=== PATIENT | female | born 1980 | race Asian ===

== ENCOUNTER 2016-11-05 18:08 | Emergency (ER) | payer BC ==
[2016-11-05 18:24] VITALS: BP 118/69
--- NOTE | 2016-11-05 18:39 | UC ---
Throat Pain/Nasal Woo HPI - HPI Summary HPI Summary: day 2 of fever and sore throat - History of Current Complaint Chief Complaint: UCRespiratory Stated Complaint: SORE THROAT Time Seen by Provider: 11/05/16 18:36 Hx Obtained From: Patient Hx Last Menstrual Period: pt on B/C that does not give her a menses ?: No Onset/Duration: Sudden Onset, Lasting Days - 2, Still Present Severity: Moderate Pain Intensity: 5 Pain Scale Used: 0-10 Numeric Cough: None Associated Signs & Symptoms: Positive: Fever. Negative: Hoarseness, Sinus Discomfort, Nasal Discharge - Allergies/Home Medications Allergies/Adverse Reactions: Allergies Allergy/AdvReac Type Severity Reaction Status Date / Time No Known Allergies Allergy Verified 11/05/16 18:24 Home Medications: Home Medications Ibuprofen [Ibuprofen 200 MG] 400 mg PO PRN 11/05/16 [History] PMH/Surg Hx/FS Hx/Imm Hx Previously Healthy: Yes Endocrine History Of: Denies: Diabetes, Thyroid Disease Cardiovascular History Of: Denies: Cardiac Disorders, Hypertension Respiratory History Of: Denies: COPD, Asthma GI/ History Of: Denies: Ulcer - Surgical History Surgical History: Yes Surgery Procedure, Year, and Place: . Oral Surgery - Family History Known Family History: Positive: None Family History: no cardiovascular issues in family lineage - Social History Occupation: Unemployed Lives: With Family Alcohol Use: None Substance Use Type: None Smoking Status (MU): Never Smoked Tobacco - Immunization History Most Recent Influenza Vaccination: 01/2015 Most Recent Tetanus Shot: had this Most Recent Pneumonia Vaccination: none Review of Systems Constitutional: Fever, Chills Skin: Negative Eyes: Negative ENT: Sore Throat Respiratory: Negative Cardiovascular: Negative Gastrointestinal: Negative Genitourinary: Negative Motor: Negative Neurovascular: Negative Musculoskeletal: Negative Neurological: Negative Psychological: Negative All Other Systems Reviewed And Are Negative: Yes Physical Exam Triage Information Reviewed: Yes Appearance: Well-Appearing, No Pain Distress, Well-Nourished Vital Signs: Initial Vital Signs Temp 101.9 F 11/05/16 18:18 Pulse 117 11/05/16 18:18 Resp 16 11/05/16 18:18 BP 118/69 11/05/16 18:18 Pulse Ox 96 11/05/16 18:18 Vital Signs Reviewed: Yes Eye Exam: Normal Eyes: Positive: Conjunctiva Clear ENT Exam: Normal ENT: Positive: Normal ENT inspection, Hearing grossly normal, Pharyngeal erythema, TMs normal. Negative: Nasal congestion, Nasal drainage, Tonsillar swelling, Tonsillar exudate, Trismus, Muffled/hoarse voice Dental Exam: Normal Neck exam: Normal Neck: Positive: Supple, Nontender, Enlarged Nodes @ - anterior cervical bilaterally Respiratory Exam: Normal Respiratory: Positive: Chest non-tender, Lungs clear, Normal breath sounds, No respiratory distress, No accessory muscle use Cardiovascular Exam: Normal Cardiovascular: Positive: RRR, No Murmur, Pulses Normal, Brisk Capillary Refill Musculoskeletal Exam: Normal Musculoskeletal: Positive: Strength Intact, ROM Intact, No Edema Neurological Exam: Normal Neurological: Positive: Alert, Muscle Tone Normal Psychological Exam: Normal Skin Exam: Normal Diagnostics - Laboratory Diagnostic Studies Completed/Ordered: RST(+) Throat Pain/Nasal Course/Dx - Course Assessment/Plan: Amoxicillin, tylenol, ibuprofen increase fluids, follow with pcp - Differential Dx/Diagnosis Differential Diagnosis/HQI/PQRI: Laryngitis, Otitis Media, Pharyngitis, URI Provider Diagnoses: Strep Pharyngitis Discharge - Discharge Plan Condition: Stable Disposition: HOME Prescriptions: Amoxicillin CAP* [Amoxicillin 500 MG CAP*] 500 mg PO Q12H #18 cap Amoxicillin CAP* [Amoxicillin 500 MG CAP*] 500 mg PO Q12H #18 cap Patient Education Materials: Ibuprofen (By mouth), Amoxicillin (By mouth), Strep Throat (ED) Referrals: [place] Uribe MD [Primary Care Provider] - If Needed
[2016-11-05] MEDS ORDERED: Amoxicillin CAP* 500 MG PO ONE ×3 (18:47→18:48)
== END 2016-11-05 19:10 | disposition home or self-care (01) ==
LOC: UCCORT 18:08
DX: J02.0 Streptococcal pharyngitis (principal)
CPT/HCPCS: 87651; 99212; A9270-GY; G0463